=== PATIENT | female | born 1995 | race African-American/Black ===

== ENCOUNTER 2016-09-23 22:11 | Emergency (ER) | payer OTHER, BC, MEDICAID ==
[~2016-09-23] VITALS: Ht 160 cm; Wt 59.4 kg
[2016-09-23 22:18] VITALS: BP 108/74; TEMP 98.5
[2016-09-23 23:43] VITALS: PULSE 80
== END 2016-09-23 23:43 | disposition home or self-care (01) ==
LOC: COL.ER 22:11
DX: S62.657A Nondisplaced fracture of middle phalanx of left little finger, initial encounter for closed fracture (principal); W01.198A Fall on same level from slipping, tripping and stumbling with subsequent striking against other object, initial encounter; Y93.72 Activity, wrestling

== ENCOUNTER → 2017-08-28 | Outpatient (CLI) | payer OTHER, BC ==
[2017-08-28 14:37] LABS: PH 5 (5-8); SQUAMOUS EPITHELIAL None Seen /hpf; URINE APPEARANCE Clear; URINE BACTERIA Rare /hpf; URINE BILIRUBIN Negative (NEGATIVE); URINE BLOOD Negative (NEGATIVE); URINE COLOR Straw; URINE GLUCOSE Negative (NEGATIVE); URINE KETONE Negative (NEGATIVE); URINE LEUKOCYTE ESTERASE Trace (NEGATIVE); URINE NITRATE Negative (NEGATIVE); URINE PROTEIN(semi-quant) Negative (NEGATIVE); URINE RBC 0-2 /hpf; URINE UROBILINOGEN Negative (NEGATIVE)
[2017-08-28 15:02] LABS: COLLECTION METHOD CLEAN CATCH
== END ==
LOC: COL.LAB 13:31
PROVIDERS: Obstetrics & Gynecology Obstetrics
DX: R30.0 Dysuria (principal)

== ENCOUNTER → 2018-10-08 | Outpatient (CLI) | payer BC ==
[2018-10-08 14:36] LABS: COLLECTION METHOD CLEAN CATCH
[2018-10-08 14:51] LABS: MUCOUS Present /lpf; PH 7 (5-8); URINE APPEARANCE Hazy; URINE BACTERIA Many /hpf; URINE BILIRUBIN Negative (NEGATIVE); URINE BLOOD Negative (NEGATIVE); URINE COLOR Yellow; URINE GLUCOSE Negative (NEGATIVE); URINE KETONE 1+ (NEGATIVE); URINE LEUKOCYTE ESTERASE 1+ (NEGATIVE); URINE NITRATE Positive (NEGATIVE); URINE PROTEIN(semi-quant) Negative (NEGATIVE); URINE UROBILINOGEN Negative (NEGATIVE); URINE WBC 20-50 /hpf
== END ==
LOC: COL.LAB 14:05
PROVIDERS: Obstetrics & Gynecology Obstetrics
DX: R10.2 Pelvic and perineal pain (principal)

== ENCOUNTER 2019-02-20 13:56 | Outpatient (CLI) | payer BC ==
[~2019-02-20] VITALS: Ht 160 cm; Wt 70.9 kg
[2019-02-20 14:10] VITALS: BP 113/63; PULSE 59; TEMP 98.1
--- NOTE | 2019-02-20 14:24 | NUR ---
1410 PATIENT HERE FROM ER WITH COMPLAINTS OF SPOTTING OFF AND ON FOR LAST COUPLE DAYS. NO LEAKING OF FLUID, NO CONTRACTIONS, BABY MOVING ALOT. EFM ON FHT 148 BABY VERY ACTIVE. NO CONTRACTIONS NOTED. SVE 0/40/HIGH AMNIOTRACE NEGATIVE. NO BLOOD NOTED ON GLOVE WITH CHECK. DR KUHN CALLED AND UPDATED ON ALL ABOVE INFORMATION. STRIP REVIEWED AND ORDERS TO DISMISS TO HOME TO FOLLOW UP WITH HER REGULAR DREdwina
[2019-02-20 14:32] VITALS: BP 103/63; PULSE 60
--- NOTE | 2019-02-20 14:33 | NUR ---
1440 SVE UNCHANGED. DHT [address] KUHN CALLED AND UPDATED. STRIP REVIEWED AND ORDERS TO DISMISS PATIENT AT THIS TIME TO FOLLOW UP WITH HER REGULAR DR THIS WEEK. CALL WITH ANY QUESTIONS OR CONCERNS. ALL DISCAHRGE INSTRUCTIONS GIVEN TO PATIENT WITH VERBAL UNDERSTANDING
== END 2019-02-20 14:37 | disposition home or self-care (01) ==
LOC: LDRO 13:56
DX: O26.852 Spotting complicating pregnancy, second trimester (principal); Z3A.27 27 weeks gestation of pregnancy

== ENCOUNTER 2019-03-08 04:40 | Inpatient (IN) | payer BC ==
[~2019-03-08] VITALS: Ht 160 cm; Wt 72.7 kg
[2019-03-08] VITALS (19 sets, daily range): BP systolic 87–119; BP diastolic 48–77; PULSE 67–89; TEMP 97.3–98.2
--- NOTE | 2019-03-08 05:00 | NUR ---
G2L1. 30-0. Wheeled to LDR 6 with spouse. Clean gown on. EFM and TOCO explained and applied. Pt doctors in [place] and dose not have records with her. Pt states she has been louisa all day but states contractions have increased intensity the past hour. Pt denies any complications during this . States this is her second baby and her first baby was born at 37wks and pt had preeclampsia but no other complications. Pt states due date is May 18, 2019. Pt breathing through contractions. 0506: SVE complete with bulgy bag noted on exam, unable to feel presenting part. 0507: notified and requested at hospital. This RN updated pt on plan of care and procedurs. at bedside. 0511: Jonathan notified and requested at hospital. 0515: IV started and labs obtained via IV site. LR bolus infusing without difficulties. 0520: notified and requested at hospital. This RN stays at bedside helping breath pt through contractions and explaining plan of care. 0521: at bedside for devliery. 0523: at bedside for delivery. SVE per provider. Ultrasound completed, lizbeth breech presentation noted. Pt prepped and prepared for . 0532: Weinstein catheter inserted without difficulties. 0533: Pt off monitors and wheeled to OR for delivery.
[2019-03-08 06:29] LABS: BASO % 0.2 % (0.0-2.0); EOS # 0.2 (0.0-0.7); EOS % 1.9 % (0-4.0); GRAN # 6.4 (1.4-6.5); GRAN % 70.3 % (42.2-75.2); LYMPH # 1.8 (1.2-3.4); LYMPH % 19.2 % (20.0-51.0); MEAN CELL VOLUME 81 fl (80.0-100.0); MEAN CORPUSCULAR HEMOGLOBIN 27 pg (27.0-31.0); MEAN CORPUSCULAR HGB CONC 33 g/dl (33.0-37.0); MEAN PLATELET VOLUME 11.5 fl (7.4-10.4); MONO # 0.7 (0.1-0.6); PLATELET COUNT 191 K/mm3 (130-400); RED BLOOD COUNT 4.42 M/mm3 (4.10-5.30); REDCELL DISTRIBUTION WIDTH-CV 12.4 % (11.5-14.5)
[2019-03-08 06:32] LABS: HEMATOCRIT 35.9 % (37.0-47.0)
[2019-03-08 07:35] LABS: TRICYCLIC ANTIDEPRESS URINE NEGATIVE
[2019-03-08 08:46] LABS: ALBUMIN 3.7 gm/dL (3.5-5.0); BILIRUBIN,TOTAL 0.2 mg/dL (0.0-1.0); CREATININE, serum 0.47 (0.52-1.25); POTASSIUM 3.5 mmol/L (3.4-5.0); TOTAL PROTEIN 7.4 gm/dL (6.4-8.2)
--- NOTE | 2019-03-08 12:54 | NUR ---
BREAST PUMP PROVIDED TO PATIENT. PATIENT PUMPING AT THIS TIME
[2019-03-08] MEDS ORDERED: IBU600 MG PO (22:56)
[2019-03-08] MEDS ORDERED: PERCOCET 325 MG1 TA2 PO (22:56)
[2019-03-09] VITALS: BP 100/60; PULSE 71; TEMP 97.8
[2019-03-09 05:00] VITALS: BP 102/58; PULSE 93; TEMP 98.4
[2019-03-09 07:30] VITALS: BP 99/51; PULSE 95; TEMP 98.1
[2019-03-09 07:48] LABS: MEAN CELL VOLUME 83 fl (80.0-100.0); MEAN CORPUSCULAR HGB CONC 33 g/dl (33.0-37.0); MEAN PLATELET VOLUME 10.9 fl (7.4-10.4); PLATELET COUNT 146 K/mm3 (130-400); RED BLOOD COUNT 3.38 M/mm3 (4.10-5.30); REDCELL DISTRIBUTION WIDTH-CV 12.7 % (11.5-14.5)
[2019-03-09 07:56] LABS: HEMOGLOBIN 9.3 g/dl (12.5-16.0); MEAN CORPUSCULAR HEMOGLOBIN 28 pg (27.0-31.0)
[2019-03-09 09:54] LABS: BAND 15 % (0-10); EOSINOPHIL 2 % (0-4); LYMPHOCYTE 9 % (20.0-51.0); NEUTROPHILS 71 % (42.0-75.2)
[2019-03-09 11:21] VITALS: BP 105/75; PULSE 88; TEMP 98
== END 2019-03-09 11:35 | disposition home or self-care (01) | DRG 788 ==
LOC: LDRO 04:40 → LDR 05:39 → OB 09:15
PROVIDERS: ADMIT Obstetrics & Gynecology
PROC: 10D00Z1 Extraction of Products of Conception, Low, Open Approach (ICD-10-PCS; principal; 2019-03-08)
DX: O60.23X0 Term delivery with preterm labor, third trimester, not applicable or unspecified (principal); O32.1XX0 Maternal care for breech presentation, not applicable or unspecified; Z3A.30 30 weeks gestation of pregnancy; Z37.0 Single live birth; Z3A.39 39 weeks gestation of pregnancy
CPT/HCPCS: J0690; J1885; J2175; J2270; J2370; J2405; J2590; J3010; J7120